=== PATIENT | female | born 2000 | race Caucasian/White ===

== ENCOUNTER 2020-07-25 11:39 | Emergency (ER) | payer BC, OTHER ==
[2020-07-25] MEDS ORDERED: LIDOCAINE HCL-MPF 1% 2ML VIAL ONE (11:57)
[2020-07-25] MEDS ORDERED: LIDOCAINE HCL 2% VISCOUS 15 ML UDCUP ONE (11:57)
[2020-07-25] MEDS ORDERED: MAG HYDROX/AL HYDROX/SIMETH ES 30 ML SUSP UDCUP ONE (11:57)
[2020-07-25] MEDS ORDERED: CEFTRIAXONE SODIUM 1 GM ONE ×2 (11:58→12:01)
[2020-07-25] MEDS ORDERED: ACETAMINOPHEN-CODEINE 300/30MG TAB ONE (11:58)
== END 2020-07-25 13:07 | disposition home or self-care (01) ==
LOC: EDH 11:39
DX: J03.90 Acute tonsillitis, unspecified (principal)
CPT/HCPCS: 96372; 99284; J0696 ×2; J3490